=== PATIENT | female | born 1970 | race Caucasian/White ===

== ENCOUNTER 2017-10-07 20:40 | Emergency (ER) | payer OTHER ==
[~2017-10-07] VITALS: Ht 152.4 cm; Wt 57.2 kg
--- NOTE | 2017-10-07 20:50 | NUR ---
[facility]IB [facility] THIS AM C/O BACK PAIN. -LOC/DENIES HEAD TRAUMA. PATIENT IS AWAKE AND ALERT,. VSS
--- NOTE | 2017-10-07 21:23 | NUR ---
PATIENT WAS TAKEN TO RADIOLOGY DEPARTMENT FOR XRAY
[2017-10-07] MEDS ORDERED: IBUPROFEN 600 MG TABLET PO ONE ×2 (21:26→21:30)
[2017-10-07] MEDS ORDERED: HYDROCODONE/APAP 5/325MG 1 EACH TABLET ONE (21:26)
[2017-10-07] MEDS ORDERED: HYDROCODONE/APAP 5/325MG 1 EACH TABLET PO ONE (21:30)
[2017-10-08 00:14] VITALS: BP 124/73
== END 2017-10-08 00:15 | disposition home or self-care (01) ==
LOC: ER 20:44
DX: S20.211A Contusion of right front wall of thorax, initial encounter (principal); S20.411A Abrasion of right back wall of thorax, initial encounter; Z90.13 Acquired absence of bilateral breasts and nipples; Z88.5 Allergy status to narcotic agent; W01.198A Fall on same level from slipping, tripping and stumbling with subsequent striking against other object, initial encounter; Y93.89 Activity, other specified; Y92.89 Other specified places as the place of occurrence of the external cause; Y99.8 Other external cause status
CPT/HCPCS: 71100-TC; A4606; Z7610